=== PATIENT | male | born 1950 | race Caucasian/White ===

== ENCOUNTER 2022-10-21 06:00 | Observation (INO) ==
--- NOTE | 2022-09-16 15:03 | PAT Medication Instructions ---
Medication Instructions Date of Service September 16, 2022 Home Medications alogliptin 12.5 mg tablet 12.5 mg PO QAM atorvastatin 80 mg tablet 40 mg PO HS cholecalciferol (vitamin D3) 50 mcg (2,000 unit) capsule 50 mcg PO QAM clotrimazole 1 % topical cream (Athlete's Foot (clotrimazole)) 1 applic topical BID curcumin-phosphatidylcholine 500 mg capsule 500 mg PO BID cyanocobalamin (vitamin B-12) 1,000 mcg capsule 1,000 mcg PO QAM empagliflozin 25 mg tablet 25 mg PO QAM levothyroxine 100 mcg tablet (Synthroid) 100 mcg PO QAM lisinopril 5 mg tablet 5 mg PO QAM metformin 1,000 mg tablet 1,000 mg PO BID 1 naproxen 500 mg tablet 500 mg PO BID ASK your surgeon for instructions naproxen 500 mg tablet 500 mg PO BID STOP taking 2 weeks before surgery curcumin-phosphatidylcholine 500 mg capsule 500 mg PO BID STOP taking 3 days before surgery empagliflozin 25 mg tablet 25 mg PO QAM STOP taking 24 hours before surgery clotrimazole 1 % topical cream (Athlete's Foot (clotrimazole)) 1 applic topical BID DO NOT take the morning of surgery alogliptin 12.5 mg tablet 12.5 mg PO QAM cholecalciferol (vitamin D3) 50 mcg (2,000 unit) capsule 50 mcg PO QAM cyanocobalamin (vitamin B-12) 1,000 mcg capsule 1,000 mcg PO QAM lisinopril 5 mg tablet 5 mg PO QAM metformin 1,000 mg tablet 1,000 mg PO BID Take morning of surgery With a small sip of water, OTHERWISE NOTHING TO EAT OR DRINK AFTER MIDNIGHT: levothyroxine 100 mcg tablet (Synthroid) 100 mcg PO QAM Take evening before surgery atorvastatin 80 mg tablet 40 mg PO HS metformin 1,000 mg tablet 1,000 mg PO BID Other Notes If you have any questions please call us at [phone] or [phone] or [phone] or [phone]
--- NOTE | 2022-09-18 14:20 | Anesthesiology Consultation ---
Date of Service September 18, 2022 Assessment & Plan (1) Encounter for pre-operative examination: - Check BSG AM DOS - COVID screening: Per assessment on 09/18: No known COVID-19 positive contacts or current COVID-19 related symptoms. Travel screen negative. Patient vaccinated. At surgeon discretion if preop Covid testing being done. - Outpatient joint assessment: Pt currently scheduled for inpatient pathway. If surgeon requests review for outpatient joint pathway, patient is not recommended candidate for outpatient joint program from anesthesia standpoint. Chart Review Chart Review: Acceptable Risk for Surgery and Patient seen in Pre Admission Testing Teaching & Discussion Pre-Anesthesia Teaching/Discussion Notes: Instructed NPO after midnight before surgery,except medications with 15 cc of water. Medication instructions provided according to the PAT guidelines. History Surgery Operation Date: 10/21/22 07:00 Proposed Procedures p Right Total Hip Arthroplasty Anterior - Min Miller, Height/Weight Height: 5 ft 8 in Weight: 90 kg Allergies Allergy/AdvReac Type Severity Reaction Status Date / Time simvastatin [From Zocor] AdvReac Mild Abdominal Verified 09/18/22 13:25 Pain Medications Home Medications Medication Instructions Recorded Confirmed Last Taken alogliptin 12.5 mg tablet 12.5 mg PO QAM 05/10/22 09/18/22 Unknown atorvastatin 80 mg tablet 40 mg PO HS 05/10/22 09/18/22 Unknown cholecalciferol (vitamin D3) 50 50 mcg PO QAM 05/10/22 09/18/22 Unknown mcg (2,000 unit) capsule clotrimazole 1 % topical cream 1 applic topical BID 05/10/22 09/18/22 Unknown (Athlete's Foot (clotrimazole)) curcumin-phosphatidylcholine 500 500 mg PO BID 05/10/22 09/11/22 Unknown mg capsule cyanocobalamin (vitamin B-12) 1,000 mcg PO QAM 05/10/22 09/18/22 Unknown 1,000 mcg capsule empagliflozin 25 mg tablet 25 mg PO QAM 05/10/22 09/18/22 Unknown levothyroxine 100 mcg tablet 100 mcg PO QAM 05/10/22 09/18/22 Unknown (Synthroid) lisinopril 5 mg tablet 5 mg PO QAM 05/10/22 09/18/22 Unknown metformin 1,000 mg tablet 1,000 mg PO BID 05/10/22 09/18/22 Unknown naproxen 500 mg tablet 500 mg PO BID 05/10/22 09/18/22 Unknown Past Medical History Medical History Diabetes mellitus, type 2 Hearing loss History of TMJ disorder HTN (hypertension) Hx of basal cell carcinoma Hypercholesteremia Hypothyroidism Osteoarthritis of right hip Exercise / Class Metabolic Activity II 4-5 Yardwork/Stairs/Walk up hill (one FS (no CP, no SOB)) Past Family History Family History Other No family history of adverse response to anesthesia Past Surgical History Surgical History H/O elbow surgery LEFT (HARDWARE INTACT) H/O laminectomy L5 History of cataract surgery R/L History of colonoscopy Past Anesthesia History No Hx of Anesthesia Complications and No Family Hx of Anesthesia Complications History of PONV No Hx of PONV and No Hx of Motion Sickness Social History Smoking Status: Former smoker tobacco type: cigarettes Do You Dip or Chew Tobacco: No Smoking End Date: Quit 1968 Hx Alcohol Use: Yes alcohol intake frequency: holidays/special occasions only Hx Substance Use: No substance use type: does not use Review of Systems Patient denies chest pain, shortness of breath, dyspnea on exertion, fever, chills, cough, wheezing, palpitations. Physical Exam Vital Signs VITALS BP 158/89 P 89 TEMP 98.2 SP02 97%RA RESP 16 PHYSICAL Full cervical extension range of motion. Full TMJ range of motion. TMD 4 finger breaths Mallampati Score 1 Dentition: missing molar Lungs: clear throughout to auscultation Cardiac: regular rate and rhythm, no murmurs noted Spine: normal Carotid arteries: negative bruit Extremities: no LE edema Lab Results Anesthesia Preop Results Results Anesthesia Widget: WBC 7.07 K/ul (4.8-10.8) 09/18/22 Hgb 14.4 g/dl (14.0-18.0) 09/18/22 Hct 42.4 % (42.0-52.0) 09/18/22 Plt 232 K/uL (130-400) 09/18/22 Na 138 mmol/L (136-145) 09/18/22 K 4.3 mmol/L (3.5-5.1) 09/18/22 Cl 105 mmol/L (98-107) 09/18/22 CO2 24 mmol/L (21-32) 09/18/22 BUN 27 mg/dl (6-23) H 09/18/22 Creat 0.99 mg/dl (0.6-1.4) 09/18/22 Glucose Level 121 mg/dl (70-99(Fasting)) H 09/18/22 PT 10.4 Seconds (9.0-12.0) 09/18/22 PTT 27.2 Seconds (21.0-31.0) 09/18/22 INR 1.0 (0.9-1.1) 09/18/22 HA1c 7.9 % (4.5-5.6) H 09/18/22 Blood Type A Positive 09/18/22 Antibody Screen NEGATIVE 09/18/22 Testing Laboratory Results Surgeon's office made aware of elevated A1C* Electrocardiogram Date: 09/18/22 NSR at 74bpm. Low voltage QRS. iRBBB. Cannot r/o anterior infarct, age undetermined. Good functional status and patient denies cardiopulmonary limiting complaints at PAT visit 09/18/22* Chest X-Ray Date: 09/18/22 FINDINGS: Cardiomediastinal and hilar silhouettes are within normal limits. Atherosclerosis of the aorta. No pneumothorax, pleural effusion, airspace consolidation or pulmonary edema. Bones appear grossly intact. IMPRESSION: No acute process. COVID-19 Risk Screen Screening Information COVID-19 Screen Date: 09/18/22 Exposure 21 Days Family/Household +COVID Last 21 Days: No Exposure 10 Days Any COVID Exposure Last 10 Days: No Symptoms Last 10 Days Experienced COVID Sx Last 10 Days: No + COVID 0-90 Days COVID + in Last 0-90 Days: No
--- NOTE | 2022-10-17 12:31 | History & Physical Report ---
Date of Service October 17, 2022 Assessment & Plan (1) Osteoarthritis of right hip: We will proceed with a right anterior total of arthroplasty. Postoperatively he will be started on aspirin for DVT prophylaxis and kept overnight in the hospital for postoperative medical management. He plans to use home health t hrough the [facility] upon discharge. History of Present Illness Chief Complaint: Osteoarthritis of the right hip. Primary Care Provider: Shay Reeder MD Yung is a pleasant 72-year-old male, who has been dealing with chronic increasing right hip and groin pain. He has been getting his medical care through the [facility]. X-rays have shown severe osteoarthritis of the hip. After failing conservative treatment, he has elected proceed with a right hip replacement surgery. . Allergies Allergy/AdvReac Type Severity Reaction Status Date / Time simvastatin [From Zocor] AdvReac Mild Abdominal Verified 09/18/22 13:25 Pain Home Medications Medication Instructions Recorded Confirmed Type alogliptin 12.5 mg tablet 12.5 mg PO QAM 05/10/22 09/18/22 History atorvastatin 80 mg tablet 40 mg PO HS 05/10/22 09/18/22 History cholecalciferol (vitamin D3) 50 50 mcg PO QAM 05/10/22 09/18/22 History mcg (2,000 unit) capsule clotrimazole 1 % topical cream 1 applic topical BID 05/10/22 09/18/22 History (Athlete's Foot (clotrimazole)) curcumin-phosphatidylcholine 500 500 mg PO BID 05/10/22 09/11/22 History mg capsule cyanocobalamin (vitamin B-12) 1,000 mcg PO QAM 05/10/22 09/18/22 History 1,000 mcg capsule empagliflozin 25 mg tablet 25 mg PO QAM 05/10/22 09/18/22 History levothyroxine 100 mcg tablet 100 mcg PO QAM 05/10/22 09/18/22 History (Synthroid) lisinopril 5 mg tablet 5 mg PO QAM 05/10/22 09/18/22 History metformin 1,000 mg tablet 1,000 mg PO BID 05/10/22 09/18/22 History naproxen 500 mg tablet 500 mg PO BID 05/10/22 09/18/22 History Past Med/Surg History Medical History Diabetes mellitus, type 2 Hearing loss History of TMJ disorder HTN (hypertension) Hx of basal cell carcinoma Hypercholesteremia Hypothyroidism Osteoarthritis of right hip Surgical History H/O elbow surgery LEFT (HARDWARE INTACT) H/O laminectomy L5 History of cataract surgery R/L History of colonoscopy Family History Other No family history of adverse response to anesthesia Social History Smoking Status: Former smoker Second Hand Exposure: Yes ( A CHILD); Do You Dip or Chew Tobacco: No; Hx Alcohol Use: Yes Alcohol type Comment: socially Hx Substance Use: No Preferred Language: Vincentian Visual Impairment: No Limitations Hearing Ability: Normal Manufacturing Lead Required: No Beliefs That Will Affect Care: None marital status: Current Living Situation: Family Current Living Situation Comment: DAUGHTER AND HER FAMILY current occupational status: employed current occupation: usp work at [employer] Feels Safe at Home: Yes Assistive Devices: Glasses and Hearing Aid - Bilateral Review of Systems All systems reviewed & are unremarkable except as noted in HPI & below. Physical Exam On physical examination of the right hip, he has decreased range of motion and pain with forced internal and external rotation.. Constitutional WD/WN, vitals as above Eyes PERRL, conjunctivae normal, anicteric sclerae ENMT external ear and nose normal, oropharynx normal Neck trachea midline, no thyromegaly Respiratory normal respiratory effort, lungs clear to auscultation Cardiovascular RRR, no murmur, no edema Gastrointestinal (Abdomen) normal bowel sounds, soft, nontender, no hepatosplenomegaly Skin no rashes, warm and dry Psychiatric A+Ox3, euthymic affect Results & Data Results & Data Laboratory Results . Diagnostic Findings X-rays of the right hip show advanced osteoarthritis with joint space narrowing, osteophyte formation, and pavb-my-elhp articulation. PG Care Time/CCT Total # of Minutes Spent Total Time Spent with Patient: Total time spent is greater than 50% in coordination of care (as documented) at patient's floor/unit and/or counseling patient: Coding Level of Care Code None Diagnoses Osteoarthritis of right hip M16.11
[~2022-10-21 06:00] MED LIST: ACETAMINOPHEN 500 MG TAB PO SCH; FAMOTIDINE 20 MG TAB PO SCH; GABAPENTIN 300 MG CAP PO SCH; Ketorolac (*for OR use only*) 30 MG, dexAMETHasone 4 MG, KETAMINE HCL (**OR use only) 1... INFIL SCH; LR 500ML BOLUS, THEN 15ML/HR IV SCH; LR 60ML/HR IV SCH; TRANEXAMIC ACID / 0.7% NACL 1,000 MG/100 ML BAG IV SCH; TRANEXAMIC ACID 1,000 MG **IV Intra-op IV SCH; ceFAZolin 2000MG 2,000 MG/15 ML SYR IV SCH; dexAMETHasone 4 MG TAB PO SCH
[2022-10-21] MEDS ORDERED: ROPIVACAINE 0.5% 5 MG/ML 30 ML VIAL ONE (06:36)
[2022-10-21] MEDS ORDERED: MIDAZOLAM HCL 1 MG/ML 2ML VIAL ONE (07:49)
[2022-10-21] MEDS ORDERED: PROPOFOL IV EMULSION 10 MG/ML 20 ML VIAL IV ONE ×2 (07:50→10:09)
[2022-10-21] MEDS ORDERED: KETOROLAC 30 MG/ML VIAL IV PRN (08:22)
[2022-10-21] MEDS ORDERED: HYDROmorphone INJ 1 MG/ML SYRINGE IV PRN (08:22)
[2022-10-21] MEDS ORDERED: ONDANSETRON INJ 2 MG/ML 2 ML VIAL IV PRN ×2 (08:22→11:40)
[2022-10-21] MEDS ORDERED: ATROPINE SULFATE 0.1 MG/ML 10ML SYR IV PRN (08:22)
[2022-10-21] MEDS ORDERED: ePHEDrine sulfate 50 MG/ML AMP IV PRN (08:22)
--- NOTE | 2022-10-21 08:30 | History & Physical Bridge Note ---
Date of Service October 21, 2022 History & Physical Bridge Note I have examined the patient, reviewed the History & Physical and in the interval since the performance of the History & Physical I have noted the following changes of clinical significance: no changes noted
[2022-10-21] MEDS ORDERED: ORTHO JOINT ANESTHETIC ONE (08:46)
[2022-10-21] MEDS ORDERED: ePHEDrine sulfate 50 MG/ML SYR ONE (09:29)
--- NOTE | 2022-10-21 10:13 | Operative Report ---
PG Post Operative Report Pre & Post Diagnosis Operation Date: 10/21/22 08:40 Pre-Op Diagnosis: Right Hip Degenerative Joint Disease Post-Op Diagnosis: Right Hip Degenerative Joint Disease I identified the patient and participated in the time-out.: Yes Procedure Operation Date: 10/21/22 08:40 Actual Procedures p Right Anterior Total Hip Arthroplasty, Uncemented(Right) - Min Miller DO Surgeon Min Miller DO Vacuum Frame Operator Min Morales PA-C Estimated Blood Loss 200 Findings Consistent with Post-Op Diagnosis Specimens Right femoral head Description of Procedure Implants used I used a ZimmerBiomet total hip arthroplasty system with a size 5 high offset Avenir Complete stem, a 56 mm G7 cup with a 25mm screw, an E1 polyethylene liner, a 40 mm ceramic head with a +3.5 neck. Yung arrived at the hospital for the above procedure. He was seen in the preoperative holding area and the operative extremity was identified and signed. He was given a spinal anesthetic, a preoperative antibiotic, and TXA. He was then taken back to the operating room and laid on the table in the supine position. He was given basic sedation. The operative leg was secured to a Puristst leg positioner. The hip was then prepped and draped in sterile fashion. A timeout was done and the patient and the operative extremity was pro perly identified. An anterior approach was used. Dissection was taken down through the fascia and the tensor muscle belly was retracted laterally and the rectus was retracted medially. The circumflex vessels were identified and ligated. The capsule was then incised and tagged for later repair. The femoral neck was then cut and the femoral head was removed. The acetabulum was exposed. Time was spent doing a complete circumferential labral release. Sequential reaming of the acetabulum up to a size 55 reamer was done. Final reamings were done under fluoroscopy to ensure appropriate version. A Biomet 56 mm G7 cup was then impacted into place. A single 25 mm screw was placed. The E1 polyethylene liner was then snapped into place. Surrounding soft tissues were then injected with 100 cc of an orthopedic pain control cocktail. The proximal femur was then exposed. Sequential broaching up to a size 5 broach was done. Off that broach a size 40 head with a +3.5 neck was trialed. The hip was reduced and fluoroscopic images showed anatomic alignment of the implants in acceptable length. The broach was removed. The final size 5 high offset Avenir Complete stem was then impacted into place. A ceramic 40 mm head with a +3.5 neck was then impacted onto the stem and the hip was reduced. Final fluoroscopic images showed anatomic alignment of the hip. The capsule was then closed with #1 Vicryl suture. A dilute betadyne lavage was then done for 3 minutes. The joint was then irrigated with normal saline solution. The fascia was closed with #1 PDS suture. Skin was closed with 2-0 Vicryl, joy, and a Silverlon dressing. He was then transferred to a hospital bed and taken to the post anesthesia care unit in stable condition. He tolerated the procedure well. Min Morales PA-C, was present for the entire procedure. He was critical for patient positioning, prepping, draping, retraction exposure, wound closure and application of sterile dressing. I attest to the content of the Intraoperative Record and any orders documented therein. Any exceptions are noted below.
--- NOTE | 2022-10-21 11:21 | Anesthesiology Progress Note ---
Date of Service October 21, 2022 Anesthesia Post Procedure Vital Signs Vital Signs: Temp Pulse Pulse Resp BP Pulse Ox O2 Del Method 10/21/22 11:00 56 L 18 105/70 96 Room Air 10/21/22 10:50 54 L 16 103/68 95 Room Air 10/21/22 10:40 62 18 106/72 95 Room Air 10/21/22 10:32 36.2 C L 65 13 103/65 98 Room Air 10/21/22 06:47 36.8 C 76 18 151/94 H 97 Room Air Pain Intensity Right Hip: Pain Intensity: 6 Transfer of Care Handoff Completed per policy Notes Mental Status: alert / awake / arousable Patient Amnestic to Procedure: Yes Nausea / Vomiting: adequately controlled Pain: adequately controlled Airway Patency, RR, SpO2: stable & adequate BP & HR: stable & adequate Hydration State: stable & adequate Anesthetic Complications: no major complications apparent
--- NOTE | 2022-10-21 11:28 | Fluoroscopy Report ---
INTRAOPERATIVE RADIOGRAPH CLINICAL HISTORY: Right hip arthroplasty. Fluoro time: 13 seconds Ka,r: 1.91 mGy FINDINGS: A single spot fluoroscopic image of the right hip is presented. A bipolar right hip arthrop lasty is in near anatomic alignment. A single cortical lag screw transfixes the acetabular cup. There is no evidence of acute fracture on this fluoroscopic image. IMPRESSION: Intraoperative image from a right hip arthroplasty procedure as above. Electronically signed by: Hossein Goodwin M.D. 10/21/2022 11:27 AM
--- NOTE | 2022-10-21 11:30 | XRay Report ---
XR hip 1V RT w pelvis HISTORY: 72 years-old Male IN PACU - Post Surgical right hip arthroplasty COMPARISON: 09/18/2022 TECHNIQUE: AP view the pelvis with crosstable lateral view of the right hip FINDINGS: Satisfactory alignment of the right hip arthroplasty. Lateral skin joy with expected postoperativ e soft tissue swelling and deep tissue air. Moderate left hip osteoarthritis. IMPRESSION: Right hip arthroplasty with expected postoperative changes. ACT 112: Negative or not required by law. The above report was generated using voice recognition software. It may contain grammatical, syntax o r spelling errors. Electronically signed by: Diego Sage M.D. 10/21/2022 11:29 AM
[2022-10-21] MEDS ORDERED: NALOXONE HCL 0.4 MG/1 ML VIAL/CARP IV PRN (11:40)
[2022-10-21] MEDS ORDERED: MAGNESIUM HYDROXIDE SUSP 30 ML UDC PO PRN (11:40)
[2022-10-21] MEDS ORDERED: oxyCODONE HCL IR 5 MG TAB (IMMEDIATE RELEASE) PO PRN (11:40)
[2022-10-21] MEDS ORDERED: PHARMACY GLYCEMIC MGMT CONSULT PRN (11:40)
[2022-10-21] MEDS ORDERED: bisacodyL 10 MG SUPP PR PRN (11:40)
[2022-10-21] MEDS ORDERED: HYDROmorphone INJ 0.5 MG/0.5 ML SYR IV PRN (11:40)
[2022-10-21] MEDS ORDERED: METOCLOPRAMIDE HCL INJ 5 MG/ML 2 ML VIAL IV PRN (11:40)
[2022-10-21] MEDS ORDERED: GLUCAGON FOR INJ 1 MG VIAL IM PRN (12:00)
[2022-10-21] MEDS ORDERED: GLUCOSE 40% GEL 15 GM TUBE PO PRN (12:00)
[2022-10-21] MEDS ORDERED: GLUCOSE 10 TAB/TUBE PO PRN (12:00)
[2022-10-21] MEDS ORDERED: CARBOHYDRATES FOR HYPOGLYCEMIA PO PRN (12:00)
[2022-10-21] MEDS ORDERED: DEXTROSE 50% 50 ML SYRINGE IV PRN (12:00)
[2022-10-21] MEDS: SODIUM CHLORIDE 0.9% 1000ML 1,000 ML IV SCH ×2 (12:04→21:10)
[2022-10-21] MEDS ORDERED: NovoLIN-N (NPH) PER UNIT CHARGE SQ ONE (12:30)
--- NOTE | 2022-10-21 12:30 | Pharmacy Report ---
Pharmacy Glycemic Short Note 2 - Date of Service October 21, 2022 - Glycemic Short BSG Results (Last 24 hours): 10/21/22 10/21/22 10/21/22 06:46 10:35 11:59 POC Glucose 123 H 159 H 139 H OUTPATIENT ANTIDIABETIC REGIMEN: * Aloglipitin 12.5 mg PO daily * Jardiance 25 mg PO daily * metformin 1 gm PO BID * HbA1C = 7.9% (09/18/22) ASSESSMENT: * Mr Earl is a 72 y/o M with a PMH of T2DM who presents for hip surgery - patient is POD 0. He received dexamethasone 8 mg PO preop. * Patient's preop blood sugar was 123 mg/dL and postop BSG was 159 mg/dL. * Patient is on three oral agents at home. * Since patient received oral steroid prior to surgery, will give NPH 35 units SQ x 1 (0.4 units/kg). Patient may require additional basal insulin tomorrow- could utilize Lantus. * Novolog weight-based stress of 3 due to steroid use. PLAN FOR INPATIENT GLYCEMIC CONTROL: * Hold outpatient oral diabetes medications * Basal insulin * NPH 35 units SQ x 1 with re-evaluation tomorrow * Bolus insulin * NovoLog per scale ACHS or Q6hrs while NPO * Goal Range: Low 110 mg/dL - High 140 mg/dL * Correction Factor: 20 mg/dL/unit * Nutritional / Prandial insulin per carb ratio of 1 unit per 6 grams CHO consumed
[2022-10-21] MEDS: INSULIN ASPART PER UNIT CHARGE SC SCH ×3 (13:01→21:09)
[2022-10-21] MEDS: KETOROLAC TROMETHAMINE 15 MG/ML VIAL IV SCH ×2 (13:17→18:36)
[2022-10-21] MEDS: ACETAMINOPHEN 500 MG TAB PO SCH ×2 (14:11→21:14)
[2022-10-21] MEDS: ceFAZolin 2000MG 2,000 MG/15 ML SYR IV SCH (16:43)
[2022-10-21] MEDS: ASPIRIN 81 MG ECTAB PO SCH (20:00)
[2022-10-21] MEDS: DOCUSATE SODIUM 100 MG CAP PO SCH (20:00)
[2022-10-21] MEDS ORDERED: SENNA 8.6 MG TAB PO SCH (21:00)
[2022-10-21] MEDS ORDERED: ATORVASTATIN 40 MG TAB PO SCH (21:00)
[2022-10-22] MEDS: ceFAZolin 2000MG 2,000 MG/15 ML SYR IV SCH (00:02)
[2022-10-22] MEDS: KETOROLAC TROMETHAMINE 15 MG/ML VIAL IV SCH ×2 (00:02→05:39)
[2022-10-22] MEDS: ACETAMINOPHEN 500 MG TAB PO SCH (05:39)
[2022-10-22] MEDS ORDERED: LEVOTHYROXINE SODIUM 100 MCG TABLET PO SCH (06:30)
--- NOTE | 2022-10-22 07:03 | Orthopedic Progress Note ---
Date of Service October 22, 2022 Assessment & Plan (1) Status post right hip replacement: Overall he is doing very well. He is not having much pain in the right hip. He will be seen by physical therapy today for ambulation and range of motion exercises. He is on aspirin for DVT prophylaxis. He can be discharged home later today. He will follow-up with orthopedics in 2 weeks. Chiquita Barragan was seen and examined at bedside this morning. Overall he is doing very well. He is not having much pain in the right hip. He has been up and ambulating to the bathroom. He has no complaints.. Review of Systems All systems reviewed & are unremarkable except as noted in HPI & below. Physical Exam On physical examination of the right hip, the dressing is clean and dry. His leg lengths are equal.. Results & Data Results & Data Laboratory Results . Diagnostic Findings Postoperative x-rays of the right hip show the prosthesis to be in anatomic alignment without any evidence of fracture, screws, or loosening. PG Care Time/CCT Total # of Minutes Spent Total Time Spent with Patient: Total time spent is greater than 50% in coordination of care (as documented) at patient's floor/unit and/or counseling patient: Coding Level of Care Code 10312 Post Operative Follow-Up Diagnoses Status post right hip replacement Z96.641
--- NOTE | 2022-10-22 07:04 | Discharge Summary ---
Date of Service October 22, 2022 Admission HPI (Per Admitting) Yung is a pleasant 72-year-old male, who has been dealing with chronic increasing right hip and groin pain. He has been getting [facility] through [facility]. X-rays have shown severe osteoarthritis of the hip. After failing conservative treatment, he has elected proceed with a right hip replacement surgery. . Admission Exam (Per Admitting) On physical examination of the right hip, he has decreased range of motion and pain with forced internal and external rotation.. Principal Diagnosis Same as "Discharge Diagnosis" noted below under Discharge Instructions. Discharge Exam On physical examination of the right hip, the dressing is clean and dry. His leg lengths are equal.. Discharge Data Procedures Performed Operation Date: 10/21/22 08:40 Actual Procedures p Right Anterior Total Hip Arthroplasty, Uncemented(Right) - Min Miller DO Ordered Studies 10/21/22 [place] hip RT 1V Routine Hospital Course (1) Status post right hip replacement: On October 21, 2022 Yung arrived at [facility] and underwent a right hip replaced without complication. He had a spinal anesthetic. Postoperatively he was started on aspirin for DVT prophylaxis and transferred to the general orthopedic floors. His hospital course was uneventful. On postop day #1, his vital signs were stable and his pain was well controlled. He was able to participate well with physical therapy doing ambulation and range of motion exercises. He was then discharged home. He will follow-up with orthopedics in 2 weeks. PG Care Time/CCT Total # of Minutes Spent Total Time Spent with Patient: Total time spent is greater than 50% in coordination of care (as documented) at patient's floor/unit and/or counseling patient: Discharge Plan Discharge Items Patient Disposition: Home - Home Health Services Reason For Visit: Right Hip Degenerative Joint Disease Discharge Diagnosis: Right hip replacement Activity: Per Instructions section Non-emergency contact: Surgeon Call non-emergency contact if: your wound has increased redness and your wound has increased drainage Follow-up/Referrals: Shay Redd MD [Primary Care Provider] - Diet: Regular Addtl Attending Provider Instructions: Activity and Therapy Recommendations: * If you are using [facility] then therapy will be provided at your home until they feel you have accomplished all of your goals. * If you are using [facility] then Physical Therapy will be provided until they feel you are ready to start Outpatient Physical Therapy. * If you are not using home therapy then Outpatient Physical Therapy should start about 3-5 days from your day of surgery. Therapy will last about 6-10 weeks * You were shown a series of exercises in the hospital. Do these exercises three times each day including the exercises you were shown in physical therapy. * Get up and walk several times each day.~ For the first four weeks, try not to stand or walk for more than one hour at a time. If you do stand or walk for more than one hour, you will not hurt anything, but your leg will likely swell.~~ * As you feel comfortable, you may change from the walker or crutches to a cane and~then to independent walking. Medications: * Narcotic You will likely be sent home from the hospital with a prescription for the narcotic pain medication that worked best throughout your stay. * Aspirin Most patients will be required to take Aspirin 81mg twice a day for 6 weeks after surgery. This is obtained [id number] and a prescription is not necessary. * Other medications may be prescribed for specific circumstances. If you have any questions, please call the office at . * Resume previous home medications unless otherwise instructed TEDs/Elastic Stockings: The white elastic stockings help limit swelling and prevent blood clots from forming in your legs. The more you wear them, the more they work. Wear them for six weeks. Dressing Care: Leave the Silverlon dressing in place for 7 days. After 7 days you may remove the dressing. If the incision is not draining then you may leave the joy open to air. If there is a little bit of drainage or if the joy are getting stuck on your clothing then cover the incision with a dry dressing. The joy will be removed at your 2 week follow-up appointment. Showering: You may shower with the Silverlon dressing in place. Do not let the shower spray hit the dressing directly. Pat the Silverlon dressing dry. If the dressing becomes wet underneath, then simply remove the dressing. Keep the incision dry until you are 7 days out from the day of surgery. After 7 days you may remove the Silverlon dressing and shower with the joy exposed. Let soapy water run over the joy and pat them dry. Do not scrub or soak the incision. Things To Watch For: * Drainage from the incision site that occurs more than one week after your surgery. * Increased redness at the incision site. * Fever above 102 degrees Fahrenheit. * Unusual chest pain or shortness of breath. * Call [facility] at with any of the above problems Follow-Up Visit: Follow-up with Dr. Miller's PA (Min Morales) 2-3 weeks after your day of surgery. He will remove your joy and answer any questions. If you have any additional questions or concerns, Dr Miller is usually in the office at the same time and will be available An appointment was probably scheduled when you signed-up for surgery in the office. If you have any questions call Office Instructions: More detailed instructions as well as Frequently Asked Questions were provided in a folder by our office when you signed-up for surgery. Please review these instructions when you get home. If you have any further questions or concerns, please feel free to call the office at [phone] Pending Studies at Discharge: No Stand-Alone Forms: My [facility] Medications and DC Order Prescriptions: New aspirin 81 mg Tablet,Delayed Release (Dr/Ec) 81 mg PO BID 42 Days Qty: 84 0RF oxycodone-acetaminophen 5-325 mg tablet 1 tab PO Q6H PRN (Reason: pain) Qty: 30 0RF Continued curcumin-phosphatidylcholine 500 mg capsule 500 mg PO BID alogliptin 12.5 mg tablet 12.5 mg PO QAM atorvastatin 80 mg tablet 40 mg PO HS cholecalciferol (vitamin D3) 50 mcg (2,000 unit) capsule 50 mcg PO QAM clotrimazole [Athlete's Foot (clotrimazole)] 1 % cream 1 applic topical BID cyanocobalamin (vitamin B-12) 1,000 mcg capsule 1,000 mcg PO QAM empagliflozin 25 mg tablet 25 mg PO QAM levothyroxine [Synthroid] 100 mcg tablet 100 mcg PO QAM lisinopril 5 mg tablet 5 mg PO QAM metformin 1,000 mg tablet 1,000 mg PO BID naproxen 500 mg tablet 500 mg PO BID Admission Data Admit Date/Time: 10/21/22 10:33 Attending Provider: Min Miller Admit Provider: Min Miller Primary Care Provider: Shay Redd
[2022-10-22] MEDS: INSULIN ASPART PER UNIT CHARGE SC SCH (08:38)
[2022-10-22] MEDS: ASPIRIN 81 MG ECTAB PO SCH (08:40)
[2022-10-22] MEDS: DOCUSATE SODIUM 100 MG CAP PO SCH (08:41)
[2022-10-22] MEDS ORDERED: lisinopril 5 MG TAB PO SCH (09:00)
[2022-10-22] MEDS ORDERED: MULTIVITAMIN TAB PO SCH (09:00)
== END 2022-10-22 11:20 | disposition home health service (06) ==
LOC: 3E 06:00 → ASU 06:00